=== PATIENT | female | born 1965 | race Caucasian/White ===

== ENCOUNTER 2019-05-15 14:09 | Emergency (ER) | payer BC ==
[~2019-05-15] VITALS: Ht 160 cm; Wt 104.3 kg
[2019-05-15] MEDS ORDERED: ARMODAFINIL150 MG PO (14:55)
[2019-05-15] MEDS ORDERED: ABILIFY 5 MG TAB5 MG PO (14:56)
[2019-05-15] MEDS ORDERED: CAMBIA50 MG PO (14:56)
[2019-05-15] MEDS ORDERED: GRALISE600 MG PO (14:57)
[2019-05-15] MEDS ORDERED: PRISTIQ ER25 MG PO (14:57)
[2019-05-15] MEDS ORDERED: OMEPRAZOLE 20 M20 M1 PO (14:58)
[2019-05-15] MEDS ORDERED: PERCOCET 7.5-31 EAC1 PO (14:58)
[2019-05-15] MEDS ORDERED: TRAZODONE 150150 M1 PO (14:58)
[2019-05-15] MEDS ORDERED: AMITIZA 24 MCG24 MC1 PO (14:59)
[2019-05-15] MEDS ORDERED: ROBAXIN 750 MG750 MG PO (14:59)
[2019-05-15] MEDS ORDERED: SUPER THERAVIT1 EACH PO (15:00)
[2019-05-15] MEDS ORDERED: CLONAZEPAM 0.50.5 M1 PO (15:00)
[2019-05-15 15:49] VITALS: BP 133/83
== END 2019-05-15 15:51 | disposition home or self-care (01) ==
LOC: M.ERS 14:09
DX: S63.601A Unspecified sprain of right thumb, initial encounter (principal); J45.909 Unspecified asthma, uncomplicated; Z79.899 Other long term (current) drug therapy; Z88.5 Allergy status to narcotic agent; Z88.2 Allergy status to sulfonamides; Z88.1 Allergy status to other antibiotic agents; X50.1XXA Overexertion from prolonged static or awkward postures, initial encounter; Y93.89 Activity, other specified; Y92.89 Other specified places as the place of occurrence of the external cause; Y99.8 Other external cause status